=== PATIENT | male | born 1995 | race Caucasian/White ===

== ENCOUNTER 2020-03-14 12:09 | Emergency (ER) | payer MEDICAID, SELFPAY ==
[2020-03-14 12:17] VITALS: BP 121/72; PULSE 91; RESP 17; TEMP 36.7; O2SAT 96; BMI 22.3
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
== END 2020-03-14 12:47 | disposition home or self-care (01) ==
LOC: HO.ED 12:28
PROVIDERS: Emergency Provider Emergency Medicine
DX: Z04.1 Encounter for examination and observation following transport accident (principal)
CPT/HCPCS: 99283

== ENCOUNTER 2020-05-09 19:08 | Emergency (ER) | payer MEDICAID, SELFPAY ==
--- NOTE | ~2020-05-09 | XR_ITS ---
EXAMINATION: XR hand wrist RT CLINICAL INFORMATION: punched glass door. fracture? shards of glass? COMPARISON: None. TECHNIQUE: 3 views of the right hand and wrist FINDINGS: There is irregularity of the first metatarsal head. In addition to the adjacent sesamoid, there is a small well-corticated ossific density. This would be an unusual appearance for a fracture. Otherwise, there is normal mineralization and alignment. No radiopaque foreign body seen. XR/XR hand wrist RT IMPRESSION: No definite fracture seen. No radiopaque foreign body seen although many forms of glass are not radiopaque. There is irregularity of the first metatarsal head with an adjacent small well-corticated ossific density. The appearance of the unusual for fracture but consider correlation with focal pain/injury at this location.
[2020-05-09 19:23] VITALS: BP 139/88; PULSE 86; RESP 16; TEMP 37.4; O2SAT 97; BMI 23.3
--- NOTE | 2020-05-09 20:43 | ED_ITS ---
HPI - General Adult General Chief complaint: Skin/Abscess/Foreign Body Stated complaint: hand lac Time Seen by Provider: 05/09/20 21:15 Source: patient Mode of arrival: ambulatory Limitations: no limitations History of Present Illness HPI narrative: Patient presents to ED for right hand abrasions and possible glass and hand after punching mirror. Patient unaware of last tetanus shot Related Data Allergies Allergy/AdvReac Type Severity Reaction Status Date / Time SEAFOOD Allergy Unknown UNKNOWN Uncoded 12/19/19 18:33 Review of Systems Review of Systems: Yes all other systems are reviewed and are negative Constitutional: Constitutional: Reports as per HPI and Reports no additional constitutional complaints Eyes: Eyes: Reports as per HPI and Reports no additional eye complaints ENT: Reports system reviewed and no additional complaints, except as documented and Reports as per HPI Cardiovascular: Cardiovascular: Reports as per HPI and Reports no additional cardiovascular complaints Respiratory: Respiratory: Reports as per HPI and Reports no additional respiratory complaints Gastrointestinal: Gastrointestinal: Reports as per HPI and Reports no additional gastrointestinal complaints Genitourinary: Genitourinary: Reports no additional male genitourinary complaints and Reports as per HPI Musculoskeletal: Musculoskeletal: Reports no additional musculoskeletal complaints and Reports as per HPI Comments: Right hand abrasions Neurologic: Reports system reviewed and no additional complaints, except as documented and Reports as per HPI Psychiatric: Psychiatric: Reports no additional psychiatric complaints and Reports as per HPI [facility] Social History Social History Advance Directives: No Physical Exam Vital Signs: Vital Signs: Last Vital Signs Temp 99.3 F 05/09/20 19:23 Pulse 69 05/09/20 22:00 Resp 18 05/09/20 22:00 BP 131/83 05/09/20 22:00 Pulse Ox 98 05/09/20 22:00 Body Mass Index 23.3 Const: General: cooperative, healthy appearing, comfortable, no acute distress, well developed, alert, awake and Physically active Orientation/consciousness: patient oriented x3 HENMT: Head: Yes normal to inspection, Yes normocephalic, Yes atraumatic, No abrasion, No Perkins's sign, No contusion, No cranial bruits, No hematoma, No laceration, No occipital foramen tenderness, No palpable skull fracture, No raccoon eyes, No scalp lesion, No scalp tenderness, No Temporal artery tenderness present, No periorbital ecchymosis and Yes other Eyes: General: appearance normal, both eyes and all related structures Neck: Neck: Yes normal visual inspection, Yes no lymphadenopathy, Yes no meningeal signs, Yes trachea midline, Yes supple and No tender Chest: Chest palpation & inspection: normal inspection of the chest and normal palpation of entire chest wall Resp: Effort & Inspection: normal respiratory effort and able to speak in complete sentences Auscultation: clear to auscultation bilaterally Cardio: Jugular venous distension: no JVD Heart sounds: S1 normal heart sound present and S2 normal heart sound present GI: Inspection: Yes normal to inspection and No abdominal wall ecchymosis Palpation (GI): Soft to palpation, not firm, nontender, no guarding and not rigid : General: No CVA tenderness and Yes no CVA tenderness Back/Spine/Pelvis: Back: no CVA tenderness, No CVA tenderness and No back tenderness Skin: General skin exam: no rashes or lesions noted and elasticity normal Neuro: General: patient oriented x3, no meningeal signs and CN's II-XI intact bilaterally Cranial nerves: Yes CN's II-XII intact bilaterally Extrem: Other: Right hand positive for multiple abrasions. Positive for small piece of glass in palm ring finger. General: Yes normal to inspection and Yes full ROM Psych: Appearance: grossly normal, well kempt and not disheveled Course Course Course Narrative: Will send patient for hand x-ray to have a better view of possibility of shortness of breaths. After x-ray will place patient hands in bucket of water the consists of sterile saline and Betadine iodine. Tetanus injection ordered Reevaluation(s) Reevaluation #1: X-ray does not show any glass. Patient states while hand was being soaked one glass that was is in palm area of his ring finger fell out. Patient states feels better. Patient received tetanus injection. Patient does not have any tenderness on palpation around 1st metacarpal. X-ray negative for fractures. Time: 22:27 Discharge Plan Discharge Clinical Impression: Abrasion Patient Disposition: Home, Self-Care Instructions: Abrasion (ED) Additional Instructions: Return to ED immediately for any swelling, redness, pus discharge, foul odor, fever, chills, or any other concerning symptoms. Please follow-up with PCP Referrals: [facility] [Primary Care Provider] - 2 days (Abrasion. Small piece of glass removed) Interventions: ED Discharge Assessment Last Done: 05/09/20 22:39 Discharge Date/Time: 05/09/20 22:39 Print Language: Luxembourgish
--- NOTE | 2020-05-09 21:36 | PC.NURSE ---
pt hand xray completed and now soaking in a bucket to soften the skin so the glass can be extracted. pt omar well.
[2020-05-09 22:00] VITALS: BP 131/83; PULSE 69; RESP 18; O2SAT 98
--- NOTE | 2020-05-09 22:33 | PC.NURSE ---
pt right hand free of glass shards, soaked, xray and tape applied to hand and removed pulling the shards, pt omar well no bleeding
== END 2020-05-09 22:39 | disposition home or self-care (01) ==
PROVIDERS: Emergency Provider Internal Medicine
DX: S60.511A Abrasion of right hand, initial encounter (principal); W22.8XXA Striking against or struck by other objects, initial encounter; Y93.89 Activity, other specified; Y92.019 Unspecified place in single-family (private) house as the place of occurrence of the external cause; Y99.9 Unspecified external cause status
CPT/HCPCS: 73110; 73130; 90471; 90472; 90715; 99284

== ENCOUNTER 2020-07-12 21:07 | Emergency (ER) | payer MEDICAID, SELFPAY ==
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
[2020-07-12 21:11] VITALS: BP 125/97; PULSE 103; RESP 18; TEMP 36.7; O2SAT 96; BMI 22.2
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
[2020-07-12 22:40] LABS: Glucose Urine UA NEG (NEG); Leukocyte Esterase Urine NEG (NEG); Nitrite Urine NEG (NEG); Specific Gravity - Urine 1.025 (1.005-1.025); Urine Blood 2+ (NEG); Urine Ketones 15 MG/DL (NEG); Urine Protein NEG (NEG-TRACE)
[2020-07-12 22:41] LABS: Appearance Urine CLEAR; Color Urine YELLOW
[2020-07-12] MEDS: iohexoL 350 MG/ML 100 ML INFUS..BTL IV (22:49)
[2020-07-12 22:58] LABS: Squamous Epithelial Cell Urine TRACE /LPF; WBC Urine 0 /HPF (0-4)
[2020-07-12 23:10] LABS: COVID-19 Test Negative (Negative)
[2020-07-12] MEDS: Ibuprofen 600 MG TABLET PO (23:55)
[2020-07-12] MEDS: Amoxicillin/Potassium Clav 875 MG TABLET PO (23:55)
== END 2020-07-13 00:11 | disposition home or self-care (01) ==
PROVIDERS: Nurse Practitioner Family; Emergency Provider Emergency Medicine
DX: S30.810A Abrasion of lower back and pelvis, initial encounter (principal); S30.811A Abrasion of abdominal wall, initial encounter; S30.0XXA Contusion of lower back and pelvis, initial encounter; S35.49 Other specified injury of renal blood vessel; V49.88XA Car occupant (driver) (passenger) injured in other specified transport accidents, initial encounter; R61 Generalized hyperhidrosis; R68.83 Chills (without fever); Z20.822 Contact with and (suspected) exposure to COVID-19; Y93.89 Activity, other specified; Y92.414 Local residential or business street as the place of occurrence of the external cause; Y99.9 Unspecified external cause status
CPT/HCPCS: 36415; 70450; 71260; 72125; 74177; 81001; 87635; 99284; Q9967

== ENCOUNTER 2020-07-18 23:37 | Emergency (ER) | payer MEDICAID, SELFPAY ==
--- NOTE | ~2020-07-18 | CT_ITS ---
EXAMINATION: CT LUMBAR SPINE CLINICAL INFORMATION: Pain. COMPARISON: 07/12/2020. TECHNIQUE: Contiguous helical images of the lumbar spine were obtained following the administration of IV contrast. 85 mL of Omnipaque 350 were administered without incident. This CT examination was performed using dose optimization techniques as appropriate, variously including the following: *Automated exposure control *Adjustment of mA and/or kV according to patient size (this includes techniques or standardized protocols for targeted exams where dose is matched to indication/reason for exam; i.e. extremities or head) *Use of iterative reconstruction technique DLP: 483 mGy-cm FINDINGS: The visualized lung bases are clear. The visualized portions of the liver, pancreas and spleen are unremarkable. Normal adrenal glands are identified bilaterally. Both kidneys are of normal size and attenuation without hydronephrosis nor nephrolithiasis. Following the administration of IV contrast, prompt symmetric nephrograms are displayed. There is no abdominal or pelvic free fluid. The urinary bladder is partially filled and unremarkable. Visualized unopacified loops of small and large bowel are unremarkable. A normal appendix is present. The lumbar vertebra are in normal alignment. Disc heights and vertebral body heights are well-preserved. There are no acute fractures. There are no paraspinal mass lesions. CT/CT lumbar spine w con IMPRESSION: Unremarkable examination.
--- NOTE | ~2020-07-18 | XR_ITS ---
EXAMINATIONS: PELVIS 1 VIEW AND LEFT HIP 2 VIEWS CLINICAL INFORMATION: Pain after fall. COMPARISON: None. TECHNIQUE: A supine view of the pelvis is provided. AP neutral and frog-leg lateral views of the left hip are provided. FINDINGS: There are no fractures. Both femoral heads are seated within well-formed acetabula. No dysplastic changes are identified. The visualized bowel gas pattern is unremarkable. XR/XR hip LT w PEL1V IMPRESSION: Unremarkable pelvic and left hip radiographs.
[2020-07-18 23:42] VITALS: BP 148/74; PULSE 88; RESP 16; TEMP 36.7; O2SAT 96; BMI 21.4
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
[2020-07-19 00:45] LABS: MANUAL DIFF FLAG NO
[2020-07-19 00:46] LABS: Basophils Percent Auto 0.3 % (0-2); Eosinophils Absolute Auto 0.1 X10*3/uL (0.0-0.4); Hematocrit 45.3 % (42-52); Hemoglobin 14.9 g/dl (14.0-18.0); Imm Gran Abs Auto 0.03 X10*3/uL (0.00-0.03); Imm Gran Pct Auto 0.3 % (0.0-0.4); Lymphocytes Absolute Auto 2.5 X10*3/uL (1.2-4.9); Lymphocytes Percent Auto 25.5 % (20-40); Mean Corpuscular HGB Conc 32.9 g/dl (31.0-36.0); Mean Corpuscular Hemoglobin 29.4 pg (27.0-33.0); Mean Corpuscular Volume 89.3 fL (80-98); Mean Platelet Volume 10.2 fL (9.4-12.4); Monocytes Absolute Auto 0.7 X10*3/uL (0.1-1.2); Monocytes Percent Auto 7.4 % (2-11); Neutrophils Absolute Auto 6.5 X10*3/uL (2.0-8.3); Neutrophils Percent Auto 65.5 % (45-73); Platelet Count 304 X10*3/uL (160-400); Red Blood Count 5.07 X10*6/uL (4.60-5.80); Red Cell Distribution Width 12.2 % (11.0-16.0)
[2020-07-19] MEDS: oxyCODONE HCl Immed Release 5 MG TABLET PO (01:06)
[2020-07-19] MEDS: Lidocaine HCl 2 % MPF 5 ML VIAL 10 ML INFILTRATI (01:07)
[2020-07-19 01:14] LABS: Anion Gap 14 (12-20); Blood Urea Nitrogen 15 mg/dL (9-16); Calcium 9.8 mg/dL (8.4-10.2); Carbon Dioxide 30 mmol/L (22-29); Chloride 103 mmol/L (96-108); Estimated Glomerular Filt Rate > 60; Glucose Random 79 mg/dL (60-115); Potassium 4.3 mmol/L (3.3-5.1); Sodium 143 mmol/L (135-145)
[2020-07-19 01:20] LABS: Erythrocyte Sedimentation Rate 1 MM/HR (0-15)
[2020-07-19] MEDS: iohexoL 350 MG/ML 100 ML INFUS..BTL 85 ML IV (01:37)
[2020-07-19 02:00] VITALS: BP 138/72; PULSE 74; RESP 16; TEMP 36.6; O2SAT 98
== END 2020-07-19 03:21 | disposition home or self-care (01) ==
PROVIDERS: Emergency Provider Emergency Medicine
DX: S51.812A Laceration without foreign body of left forearm, initial encounter (principal); M25.552 Pain in left hip; M79.632 Pain in left forearm; M54.5 Low back pain; F12.90 Cannabis use, unspecified, uncomplicated; V87.8XXA Person injured in other specified noncollision transport accidents involving motor vehicle (traffic), initial encounter; Y93.9 Activity, unspecified; Y92.410 Unspecified street and highway as the place of occurrence of the external cause; Y99.9 Unspecified external cause status; F17.200 Nicotine dependence, unspecified, uncomplicated; Z71.6 Tobacco abuse counseling; Z79.899 Other long term (current) drug therapy
CPT/HCPCS: 12002; 36415; 72132; 73502; 80048; 85025; 85652; 99284; Q9967

== ENCOUNTER 2020-07-27 14:45 | Emergency (ER) | payer MEDICAID, SELFPAY ==
[2020-07-27 15:02] VITALS: BP 134/73; PULSE 99; RESP 18; TEMP 36.6; O2SAT 99; BMI 23.0
--- NOTE | 2020-07-27 15:59 | ED.SKABFB ---
HPI - Skin/Abscess/Foreign Bdy General Chief complaint: Skin/Abscess/Foreign Body Stated complaint: suture removal Time Seen by Provider: 07/27/20 15:59 History of Present Illness HPI narrative: Patient presents for suture removal to the left forearm, he has no complaints there is no pain no discharge no redness no warmth no fever Related Data Previous Rx's Medication Instructions Recorded amoxicillin-pot clavulanate 1 tab PO Q12H 10 Days #20 tab 07/12/20 [Augmentin] ibuprofen 600 mg PO Q6H PRN #60 tab 07/12/20 Allergies Allergy/AdvReac Type Severity Reaction Status Date / Time SEAFOOD Allergy Unknown UNKNOWN Uncoded 07/19/20 02:12 Review of Systems Review of Systems: No fever no chills no dizziness no redness no warmth no discharge from wound no joint pains no rash no numbness weakness or tingling PMFSH Past Medical History Source: nursing notes reviewed Medical History No active medical problems Social History Social History Alcohol intake: current Alcohol intake frequency: a few times a month Alcohol type: beer and hard liquor Smoking Status: Current every day smoker Substance Use Type: Marijuana Advance Directives: No Advance Directives Information Provided: No Physical Exam Vital Signs: Vital Signs: Last Vital Signs Temp 97.9 F 07/27/20 15:02 Pulse 99 07/27/20 15:02 Resp 18 07/27/20 15:02 BP 134/73 07/27/20 15:02 Pulse Ox 99 07/27/20 15:02 Body Mass Index 23.0 General appearance no distress comfortable relax cooperative Head is normocephalic atraumatic Neck is supple Respiratory no distress Left forearm has [address] with no surrounding erythema no discharge no swelling no red stripe up arm, there is full range of motion in elbow and wrist, sensation and motor are normal distal all tendon function is normal Course Course Course Narrative: Eight sutures are removed from left forearm laceration, no wound dehiscence no discharge from wound there was no redness warmth or tenderness no evidence of surrounding cellulitis Discharge Plan Discharge Clinical Impression: Visit for suture removal Patient Disposition: Home, Self-Care Additional Instructions: Sutures were removed No sign of infection Okay for all activity Return any concerns Prescriptions: No Action amoxicillin-pot clavulanate [Augmentin] 875-125 mg tablet 1 tab PO Q12H 10 Days Qty: 20 RF: 0 ibuprofen 600 mg tablet 600 mg PO Q6H PRN (Reason: pain) Qty: 60 RF: 0 Discharge Date/Time: 07/27/20 16:06
== END 2020-07-27 16:06 | disposition home or self-care (01) ==
PROVIDERS: Emergency Provider Emergency Medicine
DX: Z48.02 Encounter for removal of sutures (principal); Z79.899 Other long term (current) drug therapy
CPT/HCPCS: 99283

== ENCOUNTER 2020-08-07 18:29 | Emergency (ER) | payer MEDICAID, SELFPAY ==
[2020-08-07 18:34] VITALS: BP 135/63; PULSE 97; RESP 14; TEMP 37.2; O2SAT 98; BMI 21.5
[2020-08-07 19:19] LABS: COVID-19 Test Negative (Negative)
[2020-08-07 19:57] VITALS: BP 136/77; PULSE 105; RESP 16; TEMP 37; O2SAT 98
--- NOTE | 2020-08-07 20:20 | ED.GENADULT ---
HPI - General Adult General Chief complaint: General Medical Stated complaint: fever Time Seen by Provider: 08/07/20 20:20 Source: patient Mode of arrival: ambulatory Limitations: no limitations History of Present Illness HPI narrative: 25 y/o male presenting with green nasal discharge and subjective fevers at home for the last 2 days. He states he feels fatigued and has a headache. He has no known COVID contacts and has been getting tested routinely. No cough, SOB, PHELPS or chest pain. No N/V/D or abdominal pain. He works 2 jobs and has been running himself down lately. complaint: green nasal discharge Onset (ago): day(s) (2) Location: head and face Radiation: non-radiation Severity: moderate Quality: aching Pain Consistency: intermittent Relieving factors: none Exacerbating factors: none Associated symptoms: fever/chills, headaches, loss of appetite and malaise Treatments prior to arrival: none Related Data Previous Rx's Medication Instructions Recorded amoxicillin-pot clavulanate 1 tab PO Q12H 10 Days #20 tab 07/12/20 [Augmentin] ibuprofen 600 mg PO Q6H PRN #60 tab 07/12/20 amoxicillin-pot clavulanate 1 tab PO BID #14 tab 08/07/20 [Augmentin] prednisone 40 mg PO DAILY #10 tab 08/07/20 Allergies Allergy/AdvReac Type Severity Reaction Status Date / Time SEAFOOD Allergy Unknown UNKNOWN Uncoded 07/19/20 02:12 Review of Systems Review of Systems: Constitutional: + Fever, + Chills ENT/Mouth: + sore throat, + Rhinorrhea, No Swallowing Difficulty Eyes: No Eye Pain, No Swelling, No Redness Cardiovascular: No Chest Pain, No SOB, No Orthopnea, No Edema Respiratory: No Cough, No Sputum, No Wheezing, No dyspnea Gastrointestinal: No Nausea, No Vomiting, No Diarrhea, No abdominal Pain Musculoskeletal: +joint pain, No Myalgias Skin: No Skin Lesions, No rash Neuro: No Weakness, No Numbness, No Dizziness, + Headache Psych: No Anxiety/Panic, No Depression Heme/Lymph: No Lymphadenopathy PMFSH Past Medical History Attestation statement: The following information was validated with the patient. Medical History No active medical problems Social History Social History Alcohol intake: current Alcohol intake frequency: holidays/special occasions only Alcohol type: beer and hard liquor Smoking Status: Former smoker Smoked in Last 30 Days: No Use of substances other than those prescribed or required for medical reasons: No Substance Use Type: Marijuana Advance Directives: No Advance Directives Information Provided: Yes Physical Exam Vital Signs: Vital Signs: Last Vital Signs Temp 98.6 F 08/07/20 19:57 Pulse 105 H 08/07/20 19:57 Resp 16 08/07/20 19:57 BP 136/77 08/07/20 19:57 Pulse Ox 98 08/07/20 19:57 Body Mass Index 21.5 Appearance: Alert. Oriented X3. No acute distress. Eyes: Pupils equal, round and reactive to light. ENT: Pharynx with mild generalized erythema, no tonsillar swelling or exudate. nasal turbinates erythematous with copious yellow nasal discharge. Neck: Normal inspection. Neck supple. CVS: Normal heart rate and rhythm. Pulses normal. Respiratory: No respiratory distress. Breath sounds normal. Skin: Skin warm and dry. Normal skin color. Normal skin turgor. No rashes. Extremities: No lower extremity edema. Neuro: Oriented X 3. No motor deficit. No sensory deficit. Course Course Course Narrative: 25 y/o male presenting with sore throat, headache, green nasal discharge, fatigue. COVID negative. His lungs are clear and he is afebrile here. Will treat for acute sinusitis given his nasal discharge and sinus tenderness on exam. Instructed to get re-tested for COVID if symptoms persist. Medical Decision Making Lab Data Labs: Lab Results 08/07/20 Range/Units 18:46 COVID-19 (AIDE) Negative (Negative) COVID-19 Clin Com See Note Discharge Plan Discharge Clinical Impression: Sinusitis Qualifiers: Sinusitis location: maxillary Chronicity: acute Recurrence: non-recurrent Qualified Code(s): J01.00 - Acute maxillary sinusitis, unspecified Patient Disposition: Home, Self-Care Instructions: Sinusitis (ED) Additional Instructions: Take the prescribed medications as directed - start tomorrow morning because you were given 1st doses in the ER tonight. If you are still feeling unwell in 48 hours, recommend getting retested for COVID-19. Rest and stay hydrated. Take motrin and/or tylenol as needed for aches and pain. Follow up with your doctor Monday If you have worsening symptoms come back to the ER for further evaluation. Prescriptions: New amoxicillin-pot clavulanate [Augmentin] 875-125 mg tablet 1 tab PO BID Qty: 14 RF: 0 prednisone 20 mg tablet 40 mg PO DAILY Qty: 10 RF: 0 No Action amoxicillin-pot clavulanate [Augmentin] 875-125 mg tablet 1 tab PO Q12H 10 Days Qty: 20 RF: 0 ibuprofen 600 mg tablet 600 mg PO Q6H PRN (Reason: pain) Qty: 60 RF: 0 Stand Alone Forms: Work/School Release
[2020-08-07] MEDS: Amoxicillin/Potassium Clav 875 MG TABLET PO (20:54)
[2020-08-07] MEDS: predniSONE 20 MG TABLET 60 MG PO (20:54)
== END 2020-08-07 21:10 | disposition home or self-care (01) ==
PROVIDERS: Emergency Provider Emergency Medicine
DX: J01.00 Acute maxillary sinusitis, unspecified (principal); Z20.822 Contact with and (suspected) exposure to COVID-19; R50.9 Fever, unspecified; R51.9 Headache, unspecified; J02.9 Acute pharyngitis, unspecified; F12.90 Cannabis use, unspecified, uncomplicated
CPT/HCPCS: 36415; 87635; 99283; 99284

== ENCOUNTER 2020-12-22 16:46 | Emergency (ER) | payer MEDICAID, SELFPAY ==
[2020-12-22 18:40] VITALS: BP 132/69; PULSE 85; RESP 18; TEMP 36.8; O2SAT 97; BMI 24.1
[2020-12-22 19:18] LABS: COVID-19 Test Negative (Negative)
--- NOTE | 2020-12-22 20:41 | ED_ITS ---
HPI - Headache General Chief Complaint: Headache Stated Complaint: Headache Source: patient Mode of arrival: ambulatory Limitations: no limitations History of Present Illness HPI Narrative: Patient presents to the ED for headache, loss of smell, and loss of taste for the past 4 days. Patient denies any coughing, chest pain, shortness of breath, neck stiffness, fever, or chills. Patient is not vaccinated. Related Data Previous Rx's Medication Instructions Recorded amoxicillin 875 mg-potassium 1 tab PO Q12H 10 Days #20 tab 07/12/20 clavulanate 125 mg tablet (Augmentin) ibuprofen 600 mg tablet 600 mg PO Q6H PRN #60 tab 07/12/20 amoxicillin 875 mg-potassium 1 tab PO BID #14 tab 08/07/20 clavulanate 125 mg tablet (Augmentin) prednisone 20 mg tablet 40 mg PO DAILY #10 tab 08/07/20 Allergies Allergy/AdvReac Type Severity Reaction Status Date / Time SEAFOOD Allergy Unknown UNKNOWN Uncoded 07/19/20 02:12 Review of Systems Review of Systems: Yes all other systems are reviewed and are negative Constitutional: Constitutional: Reports as per HPI, Reports no additional constitutional complaints and Reports headache(s) Eyes: Eyes: Reports as per HPI and Reports no additional eye complaints ENT: Reports system reviewed and no additional complaints, except as documented, Reports as per HPI and Reports headache(s) Comments: Loss of smell loss of taste Cardiovascular: Cardiovascular: Reports as per HPI and Reports no additional cardiovascular complaints Respiratory: Respiratory: Reports as per HPI and Reports no additional respiratory complaints Gastrointestinal: Gastrointestinal: Reports as per HPI and Reports no additional gastrointestinal complaints Genitourinary: Genitourinary: Reports no additional male genitourinary complaints and Reports as per HPI Musculoskeletal: Musculoskeletal: Reports no additional musculoskeletal complaints and Reports as per HPI Neurologic: Reports headache(s) Psychiatric: Psychiatric: Reports no additional psychiatric complaints and Reports as per HPI [facility] Past Medical History Medical History No active medical problems Social History Social History Alcohol intake: current Alcohol intake frequency: holidays/special occasions only Alcohol type: beer and hard liquor Substance Use Type: Marijuana Advance Directives: No Advance Directives Information Provided: No Physical Exam Vital Signs: Vital Signs: Last Vital Signs Temp 98.3 F 12/22/20 18:40 Pulse 85 12/22/20 18:40 Resp 18 12/22/20 18:40 BP 132/69 12/22/20 18:40 Pulse Ox 97 12/22/20 18:40 Body Mass Index 24.1 Const: General: cooperative, healthy appearing, comfortable, no acute distress, well developed, alert and awake Orientation/consciousness: patient oriented x3 HENMT: Head: Yes normal to inspection, Yes No palpable skull fracture present, Yes normocephalic, Yes atraumatic and No abrasion Ears: hearing grossly normal bilaterally, external ears normal, TM's normal bilaterally, EAC's normal, mastoids normal and no periauricular adenopathy General nose exam: Normal external nose present, Normal nares present and No nasal polyps present Face and sinus: Yes normal facial exam and Yes sinuses nontender Throat: Yes posterior oropharynx normal, Yes tonsils normal and Yes uvula midline Eyes: General: appearance normal, both eyes and all related structures Neck: Neck: Yes normal visual inspection, Yes full ROM, Yes no lymphadenopathy, Yes no meningeal signs, Yes trachea midline, Yes supple and No tender Chest: Chest palpation & inspection: normal inspection of the chest and normal palpation of entire chest wall Resp: Effort & Inspection: normal respiratory effort and able to speak in complete sentences Auscultation: clear to auscultation bilaterally Cardio: Jugular venous distension: no JVD Heart sounds: S1 normal heart sound present and S2 normal heart sound present GI: Inspection: Yes normal to inspection and No abdominal wall ecchymosis Palpation (GI): Soft to palpation, not firm, nontender, no guarding and not rigid : General: No CVA tenderness and Yes no CVA tenderness Back/Spine/Pelvis: Back: no CVA tenderness, No CVA tenderness and No back tenderness Skin: General skin exam: no rashes or lesions noted and elasticity normal Neuro: General: patient oriented x3, gait normal, no meningeal signs and CN's II-XI intact bilaterally Cranial nerves: Yes CN's II-XII intact bilaterally Extrem: General: Yes normal to inspection and Yes full ROM Psych: Appearance: grossly normal, well kempt and not disheveled Course Course Course Narrative: COVID swab sent Reevaluation(s) Reevaluation #1: COVID swab negative. Patient is not toxic appearing. Time: 20:47 MDM - Headache Lab Data Labs: Lab Results 12/22/20 Range/Units 18:49 COVID-19 (AIDE) Negative (Negative) COVID-19 Clin Com See Note Discharge Plan Discharge Clinical Impression: Headache, Viral syndrome Patient Disposition: Home, Self-Care Instructions: Acute Headache (ED), Viral Syndrome (ED) Additional Instructions: COVID swab came back negative. Is a possibility can be a false negative. Recommend retesting in 72 hours if symptoms worsen or does not improve. Return to the ED for any chest pain, shortness of breath, weakness, dizziness, coughing up blood, photophobia, neck stiffness, worsening headache, or any other concerning symptoms. please follow up with PCP. Prescriptions: No Action amoxicillin-pot clavulanate [Augmentin] 875-125 mg tablet 1 tab PO Q12H 10 Days Qty: 20 RF: 0 ibuprofen 600 mg tablet 600 mg PO Q6H PRN (Reason: pain) Qty: 60 RF: 0 amoxicillin-pot clavulanate [Augmentin] 875-125 mg tablet 1 tab PO BID Qty: 14 RF: 0 prednisone 20 mg tablet 40 mg PO DAILY Qty: 10 RF: 0 Stand Alone Forms: Work/School Release Interventions: ED Discharge Assessment Last Done: 12/22/20 20:59 Discharge Date/Time: 12/22/20 21:05 Print Language: Thai
== END 2020-12-22 21:05 | disposition home or self-care (01) ==
PROVIDERS: Emergency Provider Emergency Medicine Emergency Medical Services
DX: B34.9 Viral infection, unspecified (principal); R51.9 Headache, unspecified; F12.90 Cannabis use, unspecified, uncomplicated; Z20.822 Contact with and (suspected) exposure to COVID-19
CPT/HCPCS: 36415; 87635; 99283

== ENCOUNTER 2021-04-06 12:33 | Emergency (ER) | payer MEDICAID, SELFPAY ==
[2021-04-06 14:00] VITALS: BP 140/73; PULSE 98; RESP 14; TEMP 36.4; O2SAT 98; BMI 22.3
[2021-04-06 14:47] LABS: COVID-19 Test Negative (Negative); IDNOW Serial# 08D9AD1C
--- NOTE | 2021-04-06 15:07 | ED.MEDCLEAR ---
HPI - Medical Clearance General Chief complaint: Medical Clearance Stated complaint: sore throat Time Seen by Provider: 04/06/21 15:06 Source: patient Mode of arrival: ambulatory Limitations: no limitations History of Present Illness HPI Narrative: 25 yo male with no medical problems to the ER for evaluation after COVID exposure. He reports working for [employer] where most of his coworkers have been diagnosed with COVID recently. Him and his girlfriend are the only 2 people who have not been tested positive. They do not have any symptoms. He states he was out all week and went to several who come bars and has a little bit of a scratchy throat but he thinks is from the hookup. He has no cough, shortness of breath, fever, nausea, vomiting, body aches or headaches. He is fully vaccinated for COVID-19. His work said he needs a letter from the hospital and a negative COVID test from here to return back to work. complaint: medical clearance requested Place: work Traumatic Symptoms: denies traumatic injury Associated Symptoms: denies other symptoms Treatments Prior to Arrival: none Related Information Previous Rx's Medication Instructions Recorded amoxicillin 875 mg-potassium 1 tab PO Q12H 10 Days #20 tab 07/12/20 clavulanate 125 mg tablet (Augmentin) ibuprofen 600 mg tablet 600 mg PO Q6H PRN #60 tab 07/12/20 amoxicillin 875 mg-potassium 1 tab PO BID #14 tab 08/07/20 clavulanate 125 mg tablet (Augmentin) prednisone 20 mg tablet 40 mg PO DAILY #10 tab 08/07/20 Allergies Allergy/AdvReac Type Severity Reaction Status Date / Time SEAFOOD Allergy Unknown UNKNOWN Uncoded 07/19/20 02:12 Review of Systems Review of Systems: Constitutional: No Fever, No Chills ENT/Mouth: + sore throat (scratchy), No Rhinorrhe Cardiovascular: No Chest Pain, No SOB Respiratory: No Cough, No Sputum Gastrointestinal: No Nausea, No Vomiting, No Diarrhea, No abdominal Pain Musculoskeletal: No joint pain, No Myalgias Skin: N No rash Neuro: No Weakness, No Dizziness, No Headache Heme/Lymph: No Lymphadenopathy PMFSH Past Medical History Medical History No active medical problems Social History Social History Alcohol intake: current Alcohol intake frequency: holidays/special occasions only Alcohol type: beer and hard liquor Substance Use Type: Marijuana Advance Directives: No Advance Directives Information Provided: No Physical Exam Vital Signs: Vital Signs: Last Vital Signs Temp 97.6 F 04/06/21 14:00 Pulse 98 04/06/21 14:00 Resp 14 04/06/21 14:00 BP 140/73 H 04/06/21 14:00 Pulse Ox 98 04/06/21 14:00 BMI result Body Mass Index 22.3 Appearance: Alert. Oriented X3. No acute distress. Eyes: Pupils equal, round and reactive to light. ENT: Pharynx normal. No posterior pharyngeal erythema, tonsils normal without exudate. uvula midline Neck: Normal inspection. Neck supple. No LAD CVS: Normal heart rate and rhythm. Pulses normal. Respiratory: No respiratory distress. Breath sounds normal. Skin: Skin warm and dry. Normal skin color. Normal skin turgor. No rashes. Extremities:normal inspection, normal ROM Neuro: Oriented X 3. grossly normal. Course Course Course Narrative: 25-year-old male here for COVID test after exposure at work. He has minimal symptoms with only a mild scratchy throat that he attributes to smoking hookah this week. Otherwise his vital signs are normal in his exam is benign. He is fully vaccinated. He had a rapid COVID test here that was negative. Patient counseled on continuing to monitor his symptoms at home and getting retested in the next 48 hours if symptoms progress. Educated about the testing center [facility] as well. Will clear to go back to work for now. Stable for discharge home. MDM - Medical Clearance Lab Data Labs: Lab Results 04/06/21 Range/Units 14:25 COVID-19 (AIDE) Negative (Negative) COVID-19 Clin Com See Note Critical Care Time Critical Care Time Critical Care Time: No Discharge Plan Discharge Clinical Impression: Normal exam Patient Disposition: Home, Self-Care Additional Instructions: You tested negative for COVID-19 today 04/06/21. You may return to work. Wear a mask. Prescriptions: No Action amoxicillin-pot clavulanate [Augmentin] 875-125 mg tablet 1 tab PO Q12H 10 Days Qty: 20 RF: 0 ibuprofen 600 mg tablet 600 mg PO Q6H PRN (Reason: pain) Qty: 60 RF: 0 amoxicillin-pot clavulanate [Augmentin] 875-125 mg tablet 1 tab PO BID Qty: 14 RF: 0 prednisone 20 mg tablet 40 mg PO DAILY Qty: 10 RF: 0
== END 2021-04-06 15:28 | disposition home or self-care (01) ==
LOC: HO.ED 15:16
PROVIDERS: Emergency Provider Emergency Medicine
DX: Z20.822 Contact with and (suspected) exposure to COVID-19 (principal); F12.90 Cannabis use, unspecified, uncomplicated
CPT/HCPCS: 87635; 99283

== ENCOUNTER 2021-04-16 14:16 | Emergency (ER) | payer MEDICAID, SELFPAY ==
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
[2021-04-16 14:19] VITALS: BP 147/82; PULSE 135; RESP 20; TEMP 37; O2SAT 96; BMI 23.6
--- NOTE | 2021-04-16 15:04 | PC.NURSE ---
PT C/O L RIB PAIN WITH INSPIRATAION, BRUISING NOTED TO L SIDE OF FOREHEAD, L SHOULDER AND L MID BACK/FLANK. PT GIVEN ICE PACKS TO THESE AREAS. PT STATES THAT HE HAD NO REPORTED THE INCINDENT TO POLIE.
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
[2021-04-16 17:47] LABS: MANUAL DIFF FLAG NO
[2021-04-16 17:49] LABS: Basophils Percent Auto 0.2 % (0-2); Eosinophils Percent Auto 0.2 % (0-4); Hematocrit 48.7 % (42.0-52.0); Hemoglobin 16.1 g/dl (14.0-18.0); Imm Gran Abs Auto 0.14 X10*3/uL (0.00-0.03); Imm Gran Pct Auto 0.8 % (0.0-0.4); Lymphocytes Absolute Auto 2.5 X10*3/uL (1.2-4.9); Lymphocytes Percent Auto 13.8 % (20-40); Mean Corpuscular HGB Conc 33.1 g/dl (31.0-36.0); Mean Corpuscular Hemoglobin 29.7 pg (27.0-33.0); Mean Corpuscular Volume 89.9 fL (80.0-98.0); Mean Platelet Volume 10.2 fL (9.4-12.4); Monocytes Absolute Auto 1.3 X10*3/uL (0.1-1.2); Monocytes Percent Auto 6.9 % (2-11); Neutrophils Absolute Auto 14.1 x10*3/uL (2.0-8.3); Neutrophils Percent Auto 78.1 % (45-73); Platelet Count 281 X10*3/uL (160-400); Red Blood Count 5.42 X10*6/uL (4.60-5.80); Red Cell Distribution Width 12.7 % (11.0-16.0); White Blood Count 18.1 X10*3/uL (4.8-10.8)
[2021-04-16] MEDS: iohexoL 350 MG/ML 100 ML INFUS..BTL 80 ML IV (18:35)
[2021-04-16 19:33] VITALS: BP 130/63; PULSE 102; TEMP 37.3; O2SAT 98
[2021-04-16 20:19] LABS: Anion Gap 14 (12-20); Blood Urea Nitrogen 14 mg/dL (9-16); Calcium 9.6 mg/dL (8.4-10.2); Carbon Dioxide 27 mmol/L (22-29); Chloride 100 mmol/L (96-108); Estimated Glomerular Filt Rate > 60; Glucose Random 84 mg/dL (60-115); Potassium 3.9 mmol/L (3.3-5.1); Sodium 137 mmol/L (135-145)
== END 2021-04-16 20:32 | disposition home or self-care (01) ==
PROVIDERS: Nurse Practitioner Family; Emergency Provider Emergency Medicine
DX: S20.212A Contusion of left front wall of thorax, initial encounter (principal); S00.93XA Contusion of unspecified part of head, initial encounter; S20.222A Contusion of left back wall of thorax, initial encounter; S10.93XA Contusion of unspecified part of neck, initial encounter; S00.01XA Abrasion of scalp, initial encounter; M54.6 Pain in thoracic spine; G44.309 Post-traumatic headache, unspecified, not intractable; M54.2 Cervicalgia; Y04.8XXA Assault by other bodily force, initial encounter; Y93.9 Activity, unspecified; Y92.9 Unspecified place or not applicable; Y99.9 Unspecified external cause status; Z79.899 Other long term (current) drug therapy
CPT/HCPCS: 36415; 36555; 36556; 70450; 70486; 70498; 71260; 74176; 80048; 85025; 99284; Q9967